=== PATIENT | male | born 1960 | race Caucasian/White ===

== ENCOUNTER 2019-06-27 11:20 | Emergency (ER) | payer BC, OTHER ==
[2019-06-27 11:36] VITALS: TEMP 98.6; BMI 27.2
--- NOTE | 2019-06-27 12:17 | PDOC ---
History of Present Illness - General Chief Complaint: Urinary Problem Stated Complaint: DIFFICULTY URINATING Time Seen by Provider: 06/27/19 11:31 History Source: Patient (Patient walked in along with his father complaining of inability to urinate since yesterday) Past History - Travel Traveled outside of the country in the last 30 days: No Close contact w/someone who was outside of country & ill: No - Past Medical History Allergies/Adverse Reactions: Allergies Allergy/AdvReac Type Severity Reaction Status Date / Time No Known Allergies Allergy Verified 06/27/19 11:24 Home Medications: Ambulatory Orders Olmesartan/Hydrochlorothiazide [Benicar Hct 20-12.5 mg Tablet] 1 each PO DAILY 06/11/16 Clonazepam [Klonopin] 2 mg PO HS PRN 06/23/16 Gabapentin 1,600 mg PO DAILY 09/30/16 Cardiac Disorders: No CVA: (PT DENIES YET IN PREVIOUS HISTORY NOTED) COPD: No Diabetes: No HTN: Yes Hypercholesterolemia: Yes Psychiatric Problems: Yes (BIPOLAR ANXIETY) Seizures: No Thyroid Disease: No - Suicide/Smoking/Psychosocial Hx Smoking Status: No Smoking History: Never smoked Have you smoked in the past 12 months: No Number of Cigarettes Smoked Daily: 0 Information on smoking cessation initiated: No Hx Alcohol Use: No Drug/Substance Use Hx: No Substance Use Type: Prescribed Hx Substance Use Treatment: No *Physical Exam - Vital Signs Last Vital Signs Temp Pulse Resp BP Pulse Ox 98.6 F 90 20 140/88 98 06/27/19 11:22 06/27/19 11:22 06/27/19 11:22 06/27/19 11:22 06/27/19 11:22 *DC/Admit/Observation/Transfer Diagnosis at time of Disposition: Acute urinary retention - Discharge Dispostion Disposition: HOME Condition at time of disposition: Improved Decision to Admit order: No - Referrals Referrals: Sharmila Ireland MD [Primary Care Provider] - Ganesh Claudio MD [Staff Physician] - - Patient Instructions Printed Discharge Instructions: DI for Urinary Retention in Men Additional Instructions: See your urologist in 1-2 days - Post Discharge Activity
[2019-06-27 13:50] LABS: EPITHELIAL CELLS FEW /hpf
== END 2019-06-27 13:27 | disposition home or self-care (01) ==
LOC: FER 11:20
DX: R33.9 Retention of urine, unspecified (principal); I10 Essential (primary) hypertension; F31.9 Bipolar disorder, unspecified; F41.9 Anxiety disorder, unspecified
CPT/HCPCS: 81003; 81015; 87086; 99283-25

== ENCOUNTER 2019-07-26 13:14 | Emergency (ER) | payer BC, OTHER ==
[2019-07-26 13:30] VITALS: BP 134/83; PULSE 78; TEMP 98.9; BMI 27.2
--- NOTE | 2019-07-26 14:26 | PDOC ---
History of Present Illness - General Chief Complaint: Urinary Problem Stated Complaint: URINARY RETENTION Time Seen by Provider: 07/26/19 13:19 - History of Present Illness Initial Comments: 07/26/19 14:29 59 years old with past medical history significant for multiple spinal surgeries bipolar disorder previous history of urinary retention requiring Navarro catheterization in the past was offered a procedure by his urologist but deferred in case his symptoms resolved presents today with one-day history of urinary retention Complaining of moderate suprapubic discomfort. 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 Past History - Past Medical History Allergies/Adverse Reactions: Allergies Allergy/AdvReac Type Severity Reaction Status Date / Time No Known Allergies Allergy Verified 07/26/19 13:17 Home Medications: Ambulatory Orders Olmesartan/Hydrochlorothiazide [Benicar Hct 20-12.5 mg Tablet] 1 each PO DAILY 06/11/16 Clonazepam [Klonopin] 2 mg PO HS PRN 06/23/16 Gabapentin 1,600 mg PO DAILY 09/30/16 Cardiac Disorders: No CVA: (PT DENIES YET IN PREVIOUS HISTORY NOTED) COPD: No Diabetes: No HTN: Yes Hypercholesterolemia: Yes Psychiatric Problems: Yes (BIPOLAR ANXIETY) Seizures: No Thyroid Disease: No Other medical history: URINARY RETENTION - Suicide/Smoking/Psychosocial Hx Smoking Status: No Smoking History: Current every day smoker Have you smoked in the past 12 months: No Number of Cigarettes Smoked Daily: 20 Information on smoking cessation initiated: Yes Hx Alcohol Use: No Drug/Substance Use Hx: No Substance Use Type: Prescribed Hx Substance Use Treatment: No Review of Systems - Review of Systems Comments:: 07/26/19 14:29 ROS: A complete review of 10 out of 10 review of systems is taken and is negative apart from what is previously mentioned below and in the HPI. *Physical Exam - Vital Signs Last Vital Signs Temp Pulse Resp BP Pulse Ox 98.9 F 78 16 134/83 99 07/26/19 13:17 07/26/19 13:17 07/26/19 13:17 07/26/19 13:17 07/26/19 13:17 - Physical Exam Comments: 07/26/19 14:30 Vitals: Triage Vital signs reviewed General Appearance: no acute distress, well nourished well developed, Head: Atraumatic, Neck: Supple;No Nucal rigidity Chest Wall: Nontender Cardiac: Regular rate and rhythym, no murmurs, no rubs, no gallops, Lungs: Clear to auscultation bilateral, good air movement bilaterally, Abdomen: Soft, non distended, normal bowel sounds, non tender to palpation, mild suprapubic tenderness to palpation. Extremities: Full range of motion to all extremities, no cyanosis, clubbing, or edema Skin: Warm and dry], [no rashes or lesions], [no rash], [no petechiae] Psych: [normal mood, normal affect] General Appearance: Yes: Nourished ED Treatment Course - ADDITIONAL ORDERS Additional order review: Laboratory Results 07/26/19 14:15 Urine Color Yellow Urine Appearance Clear Urine pH 5.5 Urine Protein Negative Urine Glucose (UA) Negative Urine Ketones Negative Urine Blood Negative Urine Nitrite Negative Urine Bilirubin Negative Urine Urobilinogen 0.2 Ur Leukocyte Esterase Negative Medical Decision Making - Medical Decision Making 07/26/19 15:05 Patient observed for one hour return of 500 mL clear urine no evidence of infection we'll recommend urology follow-up within 1 week Findings, the need for follow-up and strict return instructions discussed with patient. *DC/Admit/Observation/Transfer Diagnosis at time of Disposition: Acute urinary retention - Discharge Dispostion Disposition: HOME Condition at time of disposition: Stable Decision to Admit order: No - Referrals Referrals: Sharmila Ireland MD [Primary Care Provider] - Ganesh Claudio MD [Staff Physician] - - Patient Instructions Printed Discharge Instructions: How to Care for Your Navarro Catheter -- Male Additional Instructions: Drain leg bag as needed. Follow-up with your urologist or Dr. Gurjit Milton within one week. Return to ED for any concerns. - Post Discharge Activity
[2019-07-26] MEDS ORDERED: LIDOCAINE HCL 2% JELLY 10 ML CARTRIDGE UR ONE (14:34)
[2019-07-26] MEDS ORDERED: LIDOCAINE HCL 2% JELLY 10 ML CARTRIDGE ONE (14:36)
== END 2019-07-26 15:30 | disposition home or self-care (01) ==
LOC: FER 13:14
PROC: 0T9B70Z Drainage of Bladder with Drainage Device, Via Natural or Artificial Opening (ICD-10-PCS; principal; 2019-07-26)
DX: R33.9 Retention of urine, unspecified (principal); F17.210 Nicotine dependence, cigarettes, uncomplicated; I10 Essential (primary) hypertension; F31.9 Bipolar disorder, unspecified
CPT/HCPCS: 81003; 87086; 99282-25

== ENCOUNTER 2019-11-18 22:59 | Emergency (ER) | payer BC, OTHER ==
--- NOTE | 2019-11-18 23:23 | PDOC ---
History of Present Illness - General Chief Complaint: Urinary Problem Stated Complaint: URINARY RETENTION Time Seen by Provider: 11/18/19 23:23 History Source: Patient - History of Present Illness Initial Comments: 11/18/19 23:57 pt presents to the ED complaining of 16 hours of urinary retention. History of urinary retention in the past. Denies fever, nausea or vomiting or hematuria. Patient noticed a decrease in the strength of his urine stream three days ago and his urologist attempted to call in an antibiotic, but the patient never recieved the medication. Past History - Past Medical History Allergies/Adverse Reactions: Allergies Allergy/AdvReac Type Severity Reaction Status Date / Time No Known Allergies Allergy Verified 07/26/19 13:17 Home Medications: Ambulatory Orders Olmesartan/Hydrochlorothiazide [Benicar Hct 20-12.5 mg Tablet] 1 each PO DAILY 06/11/16 Clonazepam [Klonopin] 2 mg PO HS PRN 06/23/16 Gabapentin 1,600 mg PO DAILY 09/30/16 Hyoscyamine Sulfate 0.125 mg PO 11/18/19 Lamotrigine [Lamictal] 150 mg PO BID 11/18/19 Cardiac Disorders: No CVA: (PT DENIES YET IN PREVIOUS HISTORY NOTED) COPD: No Diabetes: No HTN: Yes Hypercholesterolemia: Yes Psychiatric Problems: Yes (BIPOLAR ANXIETY) Seizures: No Thyroid Disease: No - Psycho Social/Smoking Cessation Hx Smoking Status: No Smoking History: Current every day smoker Have you smoked in the past 12 months: No Number of Cigarettes Smoked Daily: 20 Hx Alcohol Use: No Drug/Substance Use Hx: No Substance Use Type: Prescribed Hx Substance Use Treatment: No Review of Systems - Review of Systems Able to Perform ROS?: Yes Is the patient limited Martiniquais proficient: No Constitutional: No: Symptoms Reported, See HPI, Chills, Diaphoresis, Fever, Loss of Appetite, Malaise, Night Sweats, Weakness, Weight Stable, Unintentional Wgt. Loss, Unexplained wgt Loss, Other HEENTM: No: Symptoms Reported, See HPI, Eye Pain, Blurred Vision, Tearing, Recent change in vision, Double Vision, Cataracts, Ear Pain, Ocular Prothesis, Ear Discharge, Nose Pain, Nose Congestion, Tinnitus, Nose Bleeding, Hearing Loss , Throat Pain, Throat Swelling, Mouth Pain, Dental Problems, Difficulty Swallowing, Mouth Swelling, Other Respiratory: No: Symptoms reported, See HPI, Cough, Orthopnea, Shortness of Breath, SOB with Exertion, SOB at Rest, Stridor, Wheezing, Productive cough, Hemoptysis, Other Cardiac (ROS): No: Symptoms Reported, See HPI, Chest Pain, Edema, Irregular Heart Rate, Lightheadedness, Palpitations, Syncope, Chest Tightness, Other ABD/GI: No: Symptoms Reported, See HPI, Abdominal Distended, Abd. Pain w/ defecation, Blood Streaked Bowels, Constipated, Diarrhea, Difficulty Swallowing , Nausea, Poor Appetite, Poor Fluid Intake, Rectal Bleeding, Vomiting, Indigestion, Abdominal cramping, Tarry Stools, Other : Yes: Symptoms Reported, See HPI *Physical Exam - Physical Exam 11/19/19 00:10 gen: alert, NAD cv: rrr no m/r/g pulm: cta b/l abdomen: (post stallings placement) soft, non tender, non distended without guarding or rebound neuro: alert and oriented x 3 in no acute distress 11/19/19 00:16 Medical Decision Making - Medical Decision Making 11/19/19 00:10 pt presents to the ED with approximately 16 hours of urinary retention. Now feels back to normal after stallings placement with approximately 500 cc out. Will check UA to evaluate for infection and discharge home. Discharge - Discharge Information Problems reviewed: Yes Clinical Impression/Diagnosis: Urinary retention Condition: Good Disposition: HOME - Admission No - Follow up/Referral Referrals: Sharmila Ireland MD [Primary Care Provider] - - Patient Discharge Instructions Patient Printed Discharge Instructions: DI for Urinary Retention in Men Additional Instructions: you came to the ED for urinary retention. We placed a catheter in the ED to drain your urine. You should follow up with your doctor in two days to see if the catheter can come out. return to the ED for a blockage in your urinary flow ( if there is no drainage from the catheter) and blood in the catheter, other new or worsening symptoms. - Post Discharge Activity
[2019-11-18 23:46] VITALS: BP 160/100; PULSE 67; TEMP 98.3; BMI 25.8
[2019-11-19 00:20] LABS: PH,URINE 7.5 (5.0-8.0); URINE APPEARANCE CLEAR; URINE BILIRUBIN NEGATIVE (NEGATIVE); URINE COLOR YELLOW; URINE GLUCOSE (UA) NEGATIVE (NEGATIVE); URINE KETONE NEGATIVE (NEGATIVE); URINE LEUK ESTERASE NEGATIVE (NEGATIVE); URINE NITRITE NEGATIVE (NEGATIVE); URINE PROTEIN NEGATIVE (NEGATIVE)
== END 2019-11-19 00:38 | disposition home or self-care (01) ==
LOC: FER 22:59
PROC: 0T9B70Z Drainage of Bladder with Drainage Device, Via Natural or Artificial Opening (ICD-10-PCS; principal; 2019-11-18)
DX: R33.9 Retention of urine, unspecified (principal); I10 Essential (primary) hypertension; E78.00 Pure hypercholesterolemia, unspecified; F41.9 Anxiety disorder, unspecified; F32.9 Major depressive disorder, single episode, unspecified
CPT/HCPCS: 81003; 87086; 99282-25

== ENCOUNTER 2019-12-29 14:05 | Emergency (ER) | payer BC, OTHER ==
--- NOTE | 2019-12-29 14:07 | PDOC ---
History of Present Illness - General Chief Complaint: Urinary Problem Stated Complaint: URINARY RETENTION Time Seen by Provider: 12/29/19 14:06 - History of Present Illness Initial Comments: 12/29/19 14:07 59yo male with past medical history significant for multiple spinal surgeries bipolar disorder previous history of urinary retention requiring Stallings catheterization presents for urinary retention. States he started to feel the retention overnight and was only dribbling when he urinated starting around 1am. Pt with 2 greenlight procedures over the last few months. States urinary retention has been a recurrent problem since june. Pt states bladder feels full. Pt denies new back pain. No f/c. Pt on chronic bactrim for recurrent UTI. Pt denies dysuria. Pt has had multiple catheters since December 03 and his surgery. Last catheter was removed on Tuesday. 12/29/19 14:34 Past History - Past Medical History Allergies/Adverse Reactions: Allergies Allergy/AdvReac Type Severity Reaction Status Date / Time No Known Allergies Allergy Verified 12/29/19 14:06 Home Medications: Ambulatory Orders Olmesartan/Hydrochlorothiazide [Benicar Hct 20-12.5 mg Tablet] 1 each PO DAILY 06/11/16 Clonazepam [Klonopin] 2 mg PO HS PRN 06/23/16 Gabapentin 1,600 mg PO DAILY 09/30/16 Hyoscyamine Sulfate 0.125 mg PO 11/18/19 Lamotrigine [Lamictal] 150 mg PO BID 11/18/19 Cardiac Disorders: No CVA: (PT DENIES YET IN PREVIOUS HISTORY NOTED) COPD: No Diabetes: No Disorders: Yes (GREEN LIGHT SURGERY 07/2019) HTN: Yes Hypercholesterolemia: Yes Psychiatric Problems: Yes (BIPOLAR ANXIETY) Seizures: No Thyroid Disease: No - Psycho Social/Smoking Cessation Hx Smoking Status: No Smoking History: Current every day smoker Have you smoked in the past 12 months: No Number of Cigarettes Smoked Daily: 20 Hx Alcohol Use: No Drug/Substance Use Hx: No Substance Use Type: Prescribed Hx Substance Use Treatment: No Review of Systems - Review of Systems Able to Perform ROS?: Yes Is the patient limited Haitian proficient: No Constitutional: No: Chills, Fever HEENTM: No: Symptoms Reported Respiratory: No: Cough, Shortness of Breath Cardiac (ROS): No: Chest Pain, Irregular Heart Rate ABD/GI: No: Diarrhea, Nausea, Vomiting, Abdominal cramping : Yes: Other (retention). No: Burning, Dysuria Musculoskeletal: No: Back Pain Integumentary: No: Bruising Neurological: No: Headache, Numbness, Paresthesia All Other Systems: Reviewed and Negative *Physical Exam - Vital Signs 12/29/19 14:38 Selected Entries 12/29/19 14:06 Temperature 98.2 F Pulse Rate 67 Respiratory 20 Rate Blood Pressure 113/71 Blood Pressure 85 Mean O2 Sat by Pulse 100 Oximetry (%) Weight 79.379 kg - Physical Exam General Appearance: Yes: Nourished, Appropriately Dressed, Apparent Distress, Other (uncomfortable, distended bladder) HEENT: positive: EOMI, Normal Voice Neck: positive: Supple Respiratory/Chest: positive: Lungs Clear, Normal Breath Sounds. negative: Respiratory Distress Cardiovascular: positive: Regular Rhythm, Regular Rate, S1, S2 Gastrointestinal/Abdominal: positive: Soft, Tenderness (suprapubic with distended bladder). negative: Guarding, Rebound Musculoskeletal: positive: Normal Inspection. negative: CVA Tenderness Extremity: positive: Normal Capillary Refill, Normal Inspection, Normal Range of Motion Integumentary: positive: Dry, Warm Neurologic: positive: Fully Oriented, Alert, Motor Strength 5/5, Other ( ambulatory with a steady gait) ED Treatment Course - LABORATORY CBC & Chemistry Diagram: 12/29/19 14:46 12/29/19 14:46 Medical Decision Making - Medical Decision Making 12/29/19 14:39 a/p: 59yo male with urinary retention -stallings catheter placed upon arrival by nursing -pt draining clear yellow urine -no abd ttp after placement of catheter and bladder is no longer distended -will send labs given patient on chronic abx therapy for uti -pt will need a leg bag -will send ua, ucx -will monitor and reassess 12/29/19 14:[address] Espinal 12/29/19 15:20 labs reviewed no elevated wbc normal renal function no acute uti pt stable for dc to home to follow up with Dr. Espinal pt updated on lab results Discharge - Discharge Information Problems reviewed: Yes Clinical Impression/Diagnosis: Urinary retention Condition: Stable Disposition: HOME - Admission No - Follow up/Referral Referrals: Saurabh Mcgovern MD., MD [Staff Physician] - - Patient Discharge Instructions Patient Printed Discharge Instructions: How to Care for Your Stallings Catheter -- Male, DI for Urinary Retention in Men Additional Instructions: Please call Dr. Mcgovern on Tuesday morning to schedule a follow up appointment. Please continue to take all your medications as prescribed. Please leave the catheter in until seen and removed by the urologist. Please return to the ER with any further concerns or complaints. - Post Discharge Activity
[2019-12-29 14:49] VITALS: BP 113/71; PULSE 67; TEMP 98.2; BMI 25.1
[2019-12-29 15:02] LABS: BASO % 0.5 % (0-2.0); EOS % 0.8 % (0-4.5); HEMOGLOBIN 13.1 GM/dl (11.7-16.9); LYMPH % 34.3 % (8-40); MCH 28.7 pg (25.7-33.7); MCHC 32.9 g/dl (32.0-35.9); MEAN CELL VOLUME 87.4 fl (80-96); MEAN PLT VOLUME 9.7 fl (7.5-11.1); MONO % 9.8 % (3.8-10.2); NEUT % 54.6 % (42.8-82.8); PLATELET COUNT 213 K/MM3 (134-434); RBC 4.57 M/mm3 (4.00-5.60); RDW 13.3 % (11.9-15.9); WHITE BLOOD COUNT 4.7 K/mm3 (4.0-10.8)
[2019-12-29 15:10] LABS: ALBUMIN 3.8 g/dl (3.4-5.0); BILIRUBIN,TOTAL 0.8 mg/dl (0.2-1); CALCIUM 8.5 mg/dl (8.5-10); CREATININE 0.9 mg/dl (0.55-1.3); POTASSIUM 3.8 mmol/L (3.5-5.1); TOT PROT 6.8 g/dl (6.4-8.2)
== END 2019-12-29 15:58 | disposition home or self-care (01) ==
LOC: FER 14:05
PROC: 0T9B70Z Drainage of Bladder with Drainage Device, Via Natural or Artificial Opening (ICD-10-PCS; principal; 2019-12-29)
DX: R33.9 Retention of urine, unspecified (principal); F17.210 Nicotine dependence, cigarettes, uncomplicated; I10 Essential (primary) hypertension; F31.9 Bipolar disorder, unspecified
CPT/HCPCS: 36415; 80053; 81003; 81015; 85025; 87086; 99282-25